=== PATIENT | male | born 1970 | race Caucasian/White ===

== ENCOUNTER 2025-06-15 17:36 | Inpatient (IN) | payer OTHER ==
[2025-06-15] VITALS (16 sets, daily range): BP systolic 110–164; BP diastolic 76–112; PULSE 73–90; RESP 10–27; TEMP 36.5848–36.8; O2SAT 97–100
[~2025-06-15] VITALS: Ht 165.1 cm; Wt 77.2 kg
[2025-06-15] MEDS: MORPHINE SULFATE 4 MG/ML INJ (FOR IV/IM USE) IV ONE (18:25)
[2025-06-15] MEDS: FAMOTIDINE 20MG/2ML VIAL IV ONE (18:26)
[2025-06-15] MEDS: HEPARIN 5000 UNITS/ML VIAL IV ONE (18:28)
[2025-06-15] MEDS: NITROGLYCERIN 0.4MG TABLET SL SL PRN (18:41)
[2025-06-15] MEDS ORDERED: IODIXANOL 320 MG/ML 150ML BOTTLE IV ONE (18:51)
[2025-06-15] MEDS ORDERED: HEPARIN 1000 UNITS/ML 10ML ONE ×2 (18:51→19:04)
[2025-06-15] MEDS ORDERED: LIDOCAINE HCL 1% 20ML VIAL ONE (18:51)
[2025-06-15 18:59] LABS: BASOPHILS % 0.2 % (0.0-2.0); EOSINOPHILS % 0.1 % (0.0-5.0); HEMATOCRIT. 41.9 % (42.0-52.0); HEMOGLOBIN. 14.2 g/dL (14.0-18.0); LYMPHOCYTES % 10.3 % (20.0-50.0); MEAN PLATELET VOLUME 10.2 fl (7.4-10.4); MONOCYTES % 4.2 % (2.0-8.0); NEUTROPHILS % 85.2 % (40.0-76.0); PLATELET 197 x1000/uL (130-400); RED BLOOD CELL COUNT 4.54 mill/uL (4.7-6.1); RED CELL DISTRIBUTION WIDTH 13.4 % (11.6-14.6)
[2025-06-15] MEDS ORDERED: FENTANYL CITRATE/PF 50MCG/ML 2ML VIAL ONE (19:04)
[2025-06-15] MEDS ORDERED: DIPHENHYDRAMINE 50MG/ML VIAL ONE (19:04)
[2025-06-15] MEDS ORDERED: MIDAZOLAM HCL 2 MG/2 ML VIAL ONE (19:04)
[2025-06-15] MEDS ORDERED: VERAPAMIL HCL 2.5 MG/1 ML 2ML VIAL IV ONE (19:04)
[2025-06-15 19:09] LABS: INR 1.1
[2025-06-15 19:15] LABS: CREATININE 0.9 mg/dL (0.6-1.3); UREA NITROGEN BLOOD 10 mg/dL (9-23)
[2025-06-15 19:24] LABS: TROPONIN I HIGH SENSITIVITY 957 ng/L (3.0-53)
[2025-06-15] MEDS ORDERED: HYDRALAZINE 20MG/ML VIAL ONE (20:20)
[2025-06-15] MEDS ORDERED: ACETAMINOPHEN 325MG TABLET PO PRN ×3 (20:45→22:45)
[2025-06-15] MEDS ORDERED: ATROPINE SULFATE 1MG/10ML SYR IV PRN (20:45)
[2025-06-15] MEDS ORDERED: NITROGLYCERIN 50MG PREMIX 250 ML IV PRN (21:00)
[2025-06-15] MEDS: FUROSEMIDE 40MG/4ML VIAL IVP SCH (21:48)
[2025-06-15] MEDS: METOPROLOL TARTRATE 25MG TABLET PO SCH (21:48)
[2025-06-15] MEDS: CHLORHEXIDINE GLUCONATE 4% EXTERNAL USE TOP SCH (21:54)
[2025-06-15] MEDS: HYDRALAZINE HCL 25MG TABLET PO SCH (22:00)
[2025-06-15] MEDS ORDERED: ATOR10TA MT (22:19)
[2025-06-15] MEDS ORDERED: LOSA25TA26 MT (22:19)
[2025-06-15] MEDS ORDERED: PANT40SU PO (22:19)
[2025-06-15] MEDS ORDERED: IPRATROPIUM/ALBUTEROL 0.5-3(2.5)MG/3ML NEB HHN PRN (22:45)
[2025-06-15] MEDS ORDERED: CLONIDINE 0.1MG TABLET PO PRN (22:45)
[2025-06-15] MEDS ORDERED: DOCUSATE SODIUM 100MG CAPSULE PO PRN (22:45)
[2025-06-15] MEDS ORDERED: ONDANSETRON HCL 4MG/2ML INJ IV PRN (22:45)
[2025-06-15] MEDS ORDERED: NITROGLYCERIN 0.4MG TABLET SL SL PRN (23:30)
[2025-06-15] MEDS ORDERED: BISACODYL 10MG SUPP PR PRN (23:30)
[2025-06-15] MEDS ORDERED: ALPRAZOLAM 0.25 MG TABLET PO PRN (23:30)
[2025-06-16] VITALS (79 sets, daily range): BP systolic 97–159; BP diastolic 34–108; PULSE 57–122; RESP 0–26; TEMP 36.3–37.4; O2SAT 94–100
[2025-06-16] MEDS: ALLOPURINOL 300 MG TABLET PO SCH (00:01)
[2025-06-16] MEDS: ASCORBIC ACID 500 MG TABLET PO SCH (00:01)
[2025-06-16] MEDS: DOCUSATE SODIUM 100MG CAPSULE PO SCH ×2 (00:01→20:35)
[2025-06-16] MEDS: EPOETIN ALFA-EPBX 10,000 UNITS/ML VIAL SUBCUT NR (00:30)
[2025-06-16] MEDS: HEPARIN 25,000 UNITS PREMIX 250 ML IV PRN (01:41)
[2025-06-16 03:59] LABS: BASOPHILS % 0.4 % (0.0-2.0); EOSINOPHILS % 0.1 % (0.0-5.0); HEMATOCRIT. 42.0 % (42.0-52.0); HEMOGLOBIN. 14.2 g/dL (14.0-18.0); LYMPHOCYTES % 15.9 % (20.0-50.0); MEAN PLATELET VOLUME 9.5 fl (7.4-10.4); MONOCYTES % 10.8 % (2.0-8.0); NEUTROPHILS % 72.8 % (40.0-76.0); PLATELET 178 x1000/uL (130-400); RED BLOOD CELL COUNT 4.59 mill/uL (4.7-6.1); RED CELL DISTRIBUTION WIDTH 13.7 % (11.6-14.6)
[2025-06-16 04:08] LABS: CLARITY URINE CLEAR (CLEAR); COLOR URINE YELLOW (YELLOW); GLUCOSE URINE NEGATIVE (NEGATIVE); KETONES URINE NEGATIVE (NEGATIVE); LEUKOCYTE ESTERASE URINE NEGATIVE (NEGATIVE); NITRITE URINE NEGATIVE (NEGATIVE); OCCULT BLOOD URINE 1+ (NEGATIVE); PH URINE 5.5 (4.5-8.0); PROTEIN URINE TRACE (NEGATIVE); SPECIFIC GRAVITY URINE 1.034 (1.005-1.030); UROBILINOGEN URINE 0.2 E.U./dL (0.2-1.0)
[2025-06-16 04:09] LABS: INR 1.1
[2025-06-16 04:21] LABS: CREATININE 0.9 mg/dL (0.6-1.3); TRIGLYCERIDE 55 mg/dL (0-150); UREA NITROGEN BLOOD 12 mg/dL (9-23)
[2025-06-16 04:22] LABS: LDL CHOLESTEROL 118 mg/dL (5-100); PHOSPHORUS 3.7 mg/dL (2.5-4.9)
[2025-06-16 04:25] LABS: T4 FREE 1.17 ng/dL (0.89-1.76)
[2025-06-16 04:34] LABS: *AMPHETAMINES SCREEN URINE NEGATIVE (NEGATIVE); *BARBITURATES SCREEN URINE NEGATIVE (NEGATIVE); *BENZODIAZEPINES SCREEN URINE PRESUMPTIVE POSITIVE (NEGATIVE); *COCAINE SCREEN URINE NEGATIVE (NEGATIVE); METHADONE URINE SCREEN NEGATIVE (NEGATIVE); OPIATES URINE SCREEN PRESUMPTIVE POSITIVE (NEGATIVE); PHENCYCLIDINE URINE SCREEN NEGATIVE (NEGATIVE)
[2025-06-16 04:35] LABS: CANNABINOID URINE SCREEN NEGATIVE (NEGATIVE); ECSTASY MDMA SCREEN URINE NEGATIVE (NEGATIVE)
[2025-06-16] MEDS ORDERED: CHLORHEXIDINE GLUCONATE 4% EXTERNAL USE TOP SCH ×2 (05:00)
[2025-06-16] MEDS ORDERED: EPINEPHRINE 5 MG in DEXT 5% WATER 250 ML IV PRN (05:00)
[2025-06-16] MEDS ORDERED: NICARDIPINE 40MG/200ML PREMIX 200 ML IV PRN (05:00)
[2025-06-16] MEDS ORDERED: NOREPINEPHRINE 8 MG in DEXT 5% WATER 250 ML IV PRN (05:00)
[2025-06-16] MEDS ORDERED: AMINOCAPROIC ACID 5,000 MG in SODIUM CHLORIDE 0.9% 250 ML IV PRN (05:00)
[2025-06-16] MEDS ORDERED: DOPAMINE 400MG/250ML PREMIX 250 ML IV PRN ×2 (05:00→13:30)
[2025-06-16] MEDS ORDERED: PAPAVERINE HCL 180MG in SODIUM CHLORIDE 0.9% 24ML IV PRN (05:00)
[2025-06-16] MEDS ORDERED: DOBUTAMINE 250 MG/250 ML PREMIX IV PRN (05:00)
[2025-06-16] MEDS ORDERED: LR with VERAPAMIL, NTG, HEPARIN, SODIUM BICARBONATE (Soln) IV PRN ×2 (05:00→06:00)
[2025-06-16] MEDS: CHLORHEXIDINE GLUCONATE 4% EXTERNAL USE TOP SCH (05:44)
[2025-06-16] MEDS ORDERED: THROMBIN (BOVINE) 5000 UNITS/VIAL TOP ONE ×2 (05:55→05:56)
[2025-06-16] MEDS ORDERED: POLYMYXIN B SULFATE 500000 UNITS/VIAL ONE (05:55)
[2025-06-16] MEDS ORDERED: ACETAMINOPHEN 1000MG/100ML 100 ML IV ONE (05:56)
[2025-06-16] MEDS ORDERED: SKIN ADHESIVE 0.7 GM EA TOP ONE (05:56)
[2025-06-16] MEDS ORDERED: NITROGLYCERIN 50MG PREMIX 250 ML IV ONE (06:51)
[2025-06-16] MEDS ORDERED: HEPARIN 1000 UNITS/ML 10ML ONE ×3 (06:51→12:47)
[2025-06-16] MEDS ORDERED: SEVOFLURANE 250 ML LIQUID INH ONE (06:51)
[2025-06-16] MEDS ORDERED: DEXMEDETOMIDINE 250 ML IV ONE (06:56)
[2025-06-16] MEDS ORDERED: PROPOFOL 10MG/ML 100ML 100 ML IV ONE (06:57)
[2025-06-16] MEDS ORDERED: FENTANYL CITRATE/PF 50MCG/ML 5ML VIAL ONE (07:11)
[2025-06-16] MEDS ORDERED: ROCURONIUM BROMIDE 10MG/ML VIAL 5ML IV ONE ×3 (07:11→10:55)
[2025-06-16] MEDS ORDERED: ETOMIDATE 2MG/ML 10ML VIAL IV ONE (07:11)
[2025-06-16] MEDS ORDERED: MIDAZOLAM HCL 2 MG/2 ML VIAL ONE (07:12)
[2025-06-16 07:14] LABS: SQUAMOUS EPITHELIAL CELL URINE NONE SEEN /lpf (RARE/1+)
[2025-06-16 07:16] LABS: BACTERIA URINE NONE SEEN; WBC URINE 0-2 /hpf (0-2)
[2025-06-16] MEDS ORDERED: AMINOCAPROIC ACID 250 MG/ML 20ML VIAL ONE (07:19)
[2025-06-16] MEDS ORDERED: LIDOCAINE HCL/PF 2% 20MG/ML 5 ML/VIAL ONE (07:19)
[2025-06-16] MEDS ORDERED: ONDANSETRON HCL 4MG/2ML INJ ONE ×2 (07:25→10:23)
[2025-06-16] MEDS ORDERED: METOCLOPRAMIDE HCL 10MG/2ML VIAL ONE (07:25)
[2025-06-16] MEDS ORDERED: MAGNESIUM SULFATE 5GM/10ML VIAL IV ONE (07:26)
[2025-06-16] MEDS ORDERED: ALBUMIN HUMAN 12.5G/250ML (5%) IV ONE (08:07)
[2025-06-16] MEDS ORDERED: CALCIUM CHLORIDE 1GM/10ML SYR IV ONE ×2 (08:11→10:21)
[2025-06-16] MEDS ORDERED: AMIODARONE HCL 50MG/ML 3ML VIAL IV ONE (10:58)
[2025-06-16] MEDS ORDERED: PROTAMINE SULFATE 10MG/ML VIAL 25ML IV ONE (11:25)
[2025-06-16] MEDS ORDERED: CEFAZOLIN SODIUM 1000MG/VIAL ONE (11:25)
[2025-06-16] MEDS ORDERED: SODIUM BICARBONATE 8.4% 50MEQ/50ML SYR IV ONE (11:41)
[2025-06-16] MEDS ORDERED: CALCIUM CHLORIDE 5,000 MG in DEXT 5% WATER 500 ML IV PRN (12:00)
[2025-06-16] MEDS ORDERED: KCL 20MEQ/100ML PREMIX 200 ML IV ONE (12:02)
[2025-06-16] MEDS ORDERED: ALBUMIN HUMAN 25GM/100ML (25%) IV PRN (12:15)
[2025-06-16] MEDS ORDERED: MAGNESIUM 1 G PREMIX 100 ML IV PRN (12:15)
[2025-06-16] MEDS ORDERED: ALBUMIN HUMAN 12.5G/250ML (5%) IV PRN (12:15)
[2025-06-16] MEDS ORDERED: CLOPIDOGREL 75MG TABLET PO SCH (12:15)
[2025-06-16] MEDS ORDERED: SODIUM CHLORIDE 0.9% 500 ML IV PRN (12:15)
[2025-06-16] MEDS ORDERED: ACETAMINOPHEN 650MG SUPP PR PRN (12:15)
[2025-06-16] MEDS ORDERED: ACETAMINOPHEN 325MG TABLET PO PRN (12:15)
[2025-06-16] MEDS ORDERED: OXYCODONE HCL/ACETAMINOPHEN 5/325MG TABLET PO PRN (12:15)
[2025-06-16] MEDS ORDERED: ASPIRIN 81MG EC TABLET PO SCH (12:15)
[2025-06-16 12:27] LABS: BASOPHILS % 0.4 % (0.0-2.0); EOSINOPHILS % 0.4 % (0.0-5.0); HEMATOCRIT. 43.7 % (42.0-52.0); HEMOGLOBIN. 14.9 g/dL (14.0-18.0); LYMPHOCYTES % 11.5 % (20.0-50.0); MEAN PLATELET VOLUME 9.9 fl (7.4-10.4); MONOCYTES % 6.3 % (2.0-8.0); NEUTROPHILS % 81.4 % (40.0-76.0); PLATELET 158 x1000/uL (130-400); RED BLOOD CELL COUNT 4.80 mill/uL (4.7-6.1); RED CELL DISTRIBUTION WIDTH 13.5 % (11.6-14.6)
[2025-06-16 12:43] LABS: INR 1.1
[2025-06-16 12:46] LABS: CREATININE 1.2 mg/dL (0.6-1.3)
[2025-06-16 12:47] LABS: UREA NITROGEN BLOOD 14 mg/dL (9-23)
[2025-06-16 12:48] LABS: ASPARTATE AMINOTRANSFERASE 293 IU/L (<34)
[2025-06-16 12:49] LABS: BILIRUBIN TOTAL 1.2 mg/dL (0.1-1.0); PHOSPHORUS 4.2 mg/dL (2.5-4.9); PROTEIN TOTAL 6.7 g/dL (6.0-8.3)
[2025-06-16] MEDS: EPINEPHRINE 5 MG in DEXT 5% WATER 245 ML IV PRN (13:00)
[2025-06-16] MEDS: DOPAMINE 400MG/250ML PREMIX 250 ML IV PRN (13:00)
[2025-06-16 13:15] LABS: BG BASE EXCESS 0.0 mmol/L (-2.0-3.0); BG CARBOXYHEMOGLOBIN 0.5 % (0.5-1.5); BG DEOXYHEMOGLOBIN 2.8 % (0.0-5.0); BG FLOW(L/min) 5.00 L/min; BG FRACTION INSPIRED OXYGEN 100; BG HCO3 ACT 26.2 mmol/L (21.0-28.0); BG METHEMOGLOBIN 0.1 % (0.5-1.5); BG OXYGEN SATURATION 97.2 % (94.0-98.0); BG OXYHEMOGLOBIN 96.6 % (94.0-98.0); BG PCO2 47.8 mmHg (35.0-48.0); BG PH 7.356 (7.350-7.450); BG PO2 98.1 mmHg (83.0-108.0); BG SAMPLE SITE ALINE; BG TOTAL HEMOGLOBIN 16.0 g/dL (13.5-17.5); BG VENT MODE MASK - NRB
[2025-06-16] MEDS ORDERED: NALOXONE HCL 0.4MG/ML VIAL IV PRN (13:15)
[2025-06-16] MEDS: ALBUMIN HUMAN 12.5G/250ML (5%) IV NR (13:16)
[2025-06-16] MEDS: CALCIUM CHLORIDE 3,000 MG in DEXT 5% WATER 250 ML IV PRN (13:20)
[2025-06-16] MEDS: DEXT 5%/0.45% NACL 1000ML 1,000 ML IV SCH (13:21)
[2025-06-16] MEDS: INSULIN REGULAR 100U/100ML PMX 100 ML IV PRN (13:21)
[2025-06-16] MEDS ORDERED: KCL 10MEQ/50ML PREMIX 150 ML IV PRN (13:30)
[2025-06-16] MEDS ORDERED: EPINEPHRINE 5 MG in SODIUM CHLORIDE 0.9% 245 ML IV PRN (13:30)
[2025-06-16] MEDS ORDERED: KCL 10MEQ/50ML PREMIX 200 ML IV PRN (13:30)
[2025-06-16] MEDS: CEFAZOLIN 1000MG PREMIX 50 ML IV SCH (14:00)
[2025-06-16] MEDS: KCL 20MEQ/100ML PREMIX 100 ML IV SCH ×2 (14:54→18:15)
[2025-06-16] MEDS: KETOROLAC 30MG/ML VIAL IV PRN (14:55)
[2025-06-16] MEDS: ONDANSETRON HCL 4MG/2ML INJ IV PRN (14:55)
[2025-06-16] MEDS: MAGNESIUM 2 G PREMIX 50 ML IV SCH (16:34)
[2025-06-16] MEDS: PANTOPRAZOLE SODIUM 40 MG/VIAL IV SCH (16:34)
[2025-06-16] MEDS: MAGNESIUM HYDROXIDE 400MG/5ML 30ML UDC PO SCH (16:34)
[2025-06-16] MEDS: IPRATROPIUM/ALBUTEROL 0.5-3(2.5)MG/3ML NEB HHN SCH (17:09)
[2025-06-16 17:36] LABS: HEMATOCRIT. 41.3 % (42.0-52.0); HEMOGLOBIN. 14.2 g/dL (14.0-18.0); MEAN PLATELET VOLUME 9.7 fl (7.4-10.4); PLATELET 166 x1000/uL (130-400); RED BLOOD CELL COUNT 4.59 mill/uL (4.7-6.1); RED CELL DISTRIBUTION WIDTH 13.5 % (11.6-14.6)
[2025-06-16] MEDS: METOCLOPRAMIDE HCL 10MG/2ML VIAL IV SCH (17:40)
[2025-06-16 17:47] LABS: CREATININE 1.0 mg/dL (0.6-1.3); UREA NITROGEN BLOOD 14 mg/dL (9-23)
[2025-06-16 17:50] LABS: PHOSPHORUS 3.1 mg/dL (2.5-4.9)
[2025-06-16] MEDS: MAGNESIUM 2 G PREMIX 50 ML IV PRN (17:59)
[2025-06-16 18:02] LABS: BAND% 1.0 % (1.0-6.0); LYMPHOCYTES % MANUAL 13.0 % (20.0-50.0); MONOCYTES % MANUAL 11.0 % (2.0-8.0); NEUTROPHILS % MANUAL 75.0 % (45.0-75.0); PLATELET ESTIMATE NORMAL
[2025-06-16] MEDS ORDERED: INSULIN REGULAR 100U/100ML PMX 100 ML IV PRN (20:30)
[2025-06-16] MEDS: ASPIRIN 81MG EC TABLET PO SCH (20:35)
[2025-06-16] MEDS: CLOPIDOGREL 75MG TABLET PO SCH (20:36)
[2025-06-16] MEDS: BACITRACIN 14GM TUBE TOP SCH (20:36)
[2025-06-16] MEDS: INSULIN REGULAR 100U/100ML PMX 100 ML IV SCH (21:43)
[2025-06-16] MEDS: ACETAMINOPHEN 325MG TABLET PO PRN (23:48)
[2025-06-17] VITALS (101 sets, daily range): BP systolic 95–124; BP diastolic 57–99; PULSE 80–126; RESP 0–37; TEMP 36.6–37.4; O2SAT 91–99
[2025-06-17 01:05] LABS: BASOPHILS % 0.3 % (0.0-2.0); EOSINOPHILS % 0.0 % (0.0-5.0); HEMATOCRIT. 43.1 % (42.0-52.0); HEMOGLOBIN. 14.5 g/dL (14.0-18.0); LYMPHOCYTES % 8.9 % (20.0-50.0); MEAN PLATELET VOLUME 9.6 fl (7.4-10.4); MONOCYTES % 14.5 % (2.0-8.0); NEUTROPHILS % 76.3 % (40.0-76.0); PLATELET 152 x1000/uL (130-400); RED BLOOD CELL COUNT 4.68 mill/uL (4.7-6.1); RED CELL DISTRIBUTION WIDTH 13.7 % (11.6-14.6)
[2025-06-17 01:29] LABS: CREATININE 1.1 mg/dL (0.6-1.3); UREA NITROGEN BLOOD 13 mg/dL (9-23)
[2025-06-17 01:31] LABS: PHOSPHORUS 4.3 mg/dL (2.5-4.9)
[2025-06-17 01:32] LABS: ASPARTATE AMINOTRANSFERASE 250 IU/L (<34); BILIRUBIN DIRECT 0.3 mg/dL (<=3.0); BILIRUBIN TOTAL 1.0 mg/dL (0.1-1.0); PROTEIN TOTAL 6.3 g/dL (6.0-8.3)
[2025-06-17 01:49] LABS: TROPONIN I HIGH SENSITIVITY 48049 ng/L (3.0-53)
[2025-06-17] MEDS ORDERED: AMIODARONE 360MG/200ML 200 ML IV SCH (02:00)
[2025-06-17] MEDS: AMIODARONE 150MG/100ML D5W 100 ML IV NR (02:36)
[2025-06-17] MEDS: MAGNESIUM 4 G PREMIX 100 ML IV NR (02:36)
[2025-06-17] MEDS: AMIODARONE HCL 900 MG in DEXT 5% WATER 500 ML IV SCH (02:47)
[2025-06-17] MEDS: OXYCODONE HCL/ACETAMINOPHEN 5/325MG TABLET PO PRN (06:27)
[2025-06-17 07:37] LABS: BASOPHILS % 0.2 % (0.0-2.0); EOSINOPHILS % 0.1 % (0.0-5.0); HEMATOCRIT. 44.2 % (42.0-52.0); HEMOGLOBIN. 14.7 g/dL (14.0-18.0); LYMPHOCYTES % 10.6 % (20.0-50.0); MEAN PLATELET VOLUME 10.3 fl (7.4-10.4); MONOCYTES % 14.7 % (2.0-8.0); NEUTROPHILS % 74.4 % (40.0-76.0); PLATELET 157 x1000/uL (130-400); RED BLOOD CELL COUNT 4.73 mill/uL (4.7-6.1); RED CELL DISTRIBUTION WIDTH 13.8 % (11.6-14.6)
[2025-06-17 07:38] LABS: CREATININE 1.1 mg/dL (0.6-1.3); UREA NITROGEN BLOOD 10 mg/dL (9-23)
[2025-06-17 07:41] LABS: PHOSPHORUS 5.0 mg/dL (2.5-4.9)
[2025-06-17] MEDS: AMIODARONE 200MG TABLET PO SCH (08:54)
[2025-06-17] MEDS: TAMSULOSIN HCL 0.4MG SR CAPSULE PO SCH (10:33)
[2025-06-17] MEDS ORDERED: DEXTROSE 50% WATER 50ML SYRINGE IV PRN (11:30)
[2025-06-17] MEDS: BLOOD SUGAR DIAGNOSTIC STRIP TEST SCH (12:07)
[2025-06-17] MEDS: INSULIN LISPRO 100 UNITS/ML SUBCUT SCH (12:07)
[2025-06-17] MEDS: MIDODRINE HCL 5MG TABLET PO SCH (14:52)
[2025-06-17] MEDS: ALBUMIN HUMAN 25GM/100ML (25%) IV SCH (14:53)
[2025-06-18] VITALS (101 sets, daily range): BP systolic 94–136; BP diastolic 62–100; PULSE 97–119; RESP 9–31; TEMP 36.9–37.4; O2SAT 90–100
[2025-06-18 06:36] LABS: BASOPHILS % 0.2 % (0.0-2.0); EOSINOPHILS % 0.4 % (0.0-5.0); HEMATOCRIT. 37.2 % (42.0-52.0); HEMOGLOBIN. 12.6 g/dL (14.0-18.0); LYMPHOCYTES % 10.7 % (20.0-50.0); MEAN PLATELET VOLUME 9.7 fl (7.4-10.4); MONOCYTES % 14.4 % (2.0-8.0); NEUTROPHILS % 74.3 % (40.0-76.0); PLATELET 117 x1000/uL (130-400); RED BLOOD CELL COUNT 4.03 mill/uL (4.7-6.1); RED CELL DISTRIBUTION WIDTH 14.3 % (11.6-14.6)
[2025-06-18 06:56] LABS: CREATININE 0.9 mg/dL (0.6-1.3); UREA NITROGEN BLOOD 14 mg/dL (9-23)
[2025-06-18 08:15] LABS: PHOSPHORUS 3.0 mg/dL (2.5-4.9)
[2025-06-18] MEDS: FUROSEMIDE 40MG/4ML VIAL IVP SCH (08:20)
[2025-06-18] MEDS: MAGNESIUM 2 G PREMIX 50 ML IV ONE (08:20)
[2025-06-18] MEDS ORDERED: ONDANSETRON HCL 4MG/2ML INJ ONE (12:04)
[2025-06-18] MEDS ORDERED: ALBUMIN HUMAN 12.5G/250ML (5%) IV ONE (12:04)
[2025-06-18] MEDS ORDERED: KETOROLAC 30MG/ML VIAL ONE (12:04)
[2025-06-18] MEDS: MAGNESIUM/ALUMINUM HYDROXIDE/SIMETHICONE 30ML UDC PO PRN (14:16)
[2025-06-18] MEDS: ACETAMINOPHEN 325MG TABLET PO PRN (18:28)
[2025-06-18 20:53] LABS: BASOPHILS % 0.2 % (0.0-2.0); EOSINOPHILS % 0.4 % (0.0-5.0); HEMATOCRIT. 37.7 % (42.0-52.0); HEMOGLOBIN. 12.6 g/dL (14.0-18.0); LYMPHOCYTES % 14.9 % (20.0-50.0); MEAN PLATELET VOLUME 10.0 fl (7.4-10.4); MONOCYTES % 13.2 % (2.0-8.0); NEUTROPHILS % 71.3 % (40.0-76.0); PLATELET 124 x1000/uL (130-400); RED BLOOD CELL COUNT 4.06 mill/uL (4.7-6.1); RED CELL DISTRIBUTION WIDTH 14.0 % (11.6-14.6)
[2025-06-18] MEDS: GUAIFENESIN 200MG/10ML SUGAR FREE UDC PO PRN (20:54)
[2025-06-18 21:05] LABS: CREATININE 0.9 mg/dL (0.6-1.3); UREA NITROGEN BLOOD 13 mg/dL (9-23)
[2025-06-18 21:08] LABS: PHOSPHORUS 1.4 mg/dL (2.5-4.9)
[2025-06-18] MEDS: SODIUM PHOSPHATE 30 MMOL in DEXT 5% WATER 490 ML IV SCH (23:12)
[2025-06-19] VITALS (89 sets, daily range): BP systolic 92–145; BP diastolic 70–108; PULSE 87–116; RESP 10–29; TEMP 36.2–37.2; O2SAT 89–98
[2025-06-19 06:08] LABS: BASOPHILS % 0.4 % (0.0-2.0); EOSINOPHILS % 0.8 % (0.0-5.0); HEMATOCRIT. 38.2 % (42.0-52.0); HEMOGLOBIN. 12.9 g/dL (14.0-18.0); LYMPHOCYTES % 17.5 % (20.0-50.0); MEAN PLATELET VOLUME 9.6 fl (7.4-10.4); MONOCYTES % 13.3 % (2.0-8.0); NEUTROPHILS % 68.0 % (40.0-76.0); PLATELET 129 x1000/uL (130-400); RED BLOOD CELL COUNT 4.13 mill/uL (4.7-6.1); RED CELL DISTRIBUTION WIDTH 13.4 % (11.6-14.6)
[2025-06-19 06:20] LABS: CREATININE 0.8 mg/dL (0.6-1.3)
[2025-06-19 06:23] LABS: UREA NITROGEN BLOOD 11 mg/dL (9-23)
[2025-06-19 06:25] LABS: PHOSPHORUS 3.2 mg/dL (2.5-4.9)
[2025-06-19] MEDS: KCL 10MEQ/50ML PREMIX 100 ML IV PRN (07:27)
[2025-06-19] MEDS: MIDODRINE HCL 5MG TABLET PO SCH (08:07)
[2025-06-19] MEDS: ATORVASTATIN CALCIUM 40MG TABLET PO SCH (20:28)
[2025-06-19] MEDS: MELATONIN 3MG TABLET PO SCH (22:27)
[2025-06-20] VITALS (51 sets, daily range): BP systolic 94–142; BP diastolic 71–127; PULSE 81–110; RESP 13–24; TEMP 36.3–36.9; O2SAT 91–100
[2025-06-20 06:26] LABS: PLATELET 175 x1000/uL (130-400); RED BLOOD CELL COUNT 3.76 mill/uL (4.7-6.1); RED CELL DISTRIBUTION WIDTH 13.8 % (11.6-14.6)
[2025-06-20 06:43] LABS: CREATININE 0.9 mg/dL (0.6-1.3); UREA NITROGEN BLOOD 16 mg/dL (9-23)
[2025-06-20 06:45] LABS: PHOSPHORUS 3.2 mg/dL (2.5-4.9)
[2025-06-20] MEDS: MAGNESIUM SULFATE 3 GM in DEXT 5% WATER 100 ML IV PRN (09:35)
[2025-06-20] MEDS ORDERED: MELATONIN 3MG TABLET PO SCH (21:00)
[2025-06-21] VITALS: BP 99/76; PULSE 81; RESP 14; TEMP 37; O2SAT 97
[2025-06-21 04:00] VITALS: BP 116/78; PULSE 85; RESP 13; TEMP 36.2; O2SAT 95
[2025-06-21 08:00] VITALS: BP 115/84; PULSE 82; RESP 13; TEMP 36.8; O2SAT 95
[2025-06-21 12:00] VITALS: BP 134/104; PULSE 85; RESP 19; TEMP 36.7; O2SAT 98
[2025-06-21 15:33] VITALS: BP 110/76; PULSE 89; RESP 19; TEMP 98.5
[2025-06-21] MEDS ORDERED: MIDO5TAB4 PO (15:34)
[2025-06-21] MEDS ORDERED: TAMS-54 PO ×3 (15:34→22:47)
[2025-06-21] MEDS ORDERED: ASPI-1406 PO (15:34)
[2025-06-21] MEDS ORDERED: CLOP-31 PO (15:34)
[2025-06-21] MEDS ORDERED: LIP40 PO (15:34)
[2025-06-21] MEDS ORDERED: AMI2 PO (15:34)
[2025-06-21] MEDS ORDERED: DOCU-422 PO ×2 (15:34→22:47)
[2025-06-21 16:00] VITALS: BP 110/76; PULSE 89; RESP 19; TEMP 36.9; O2SAT 96
[2025-06-21] MEDS ORDERED: ASPI-1497 PO ×2 (18:12→22:47)
[2025-06-21] MEDS ORDERED: MIDO10TA3 MT ×2 (18:12→22:47)
[2025-06-21] MEDS ORDERED: AMI2 MT ×2 (18:12→22:47)
[2025-06-21] MEDS ORDERED: CLOP75TA33 PO ×2 (18:12→22:47)
[2025-06-21] MEDS ORDERED: DOCU100T MT (18:12)
[2025-06-21] MEDS ORDERED: ATOR-2 MT ×2 (18:12→22:47)
[2025-06-22] MEDS ORDERED: FAMOTIDINE 20MG TABLET PO SCH (09:00)
== END 2025-06-21 16:33 | disposition home health service (06) | DRG 233 ==
LOC: ER 17:36 → CVICU 20:34 → 3WST 06-20 17:55
PROVIDERS: ADMIT Hospitalist; ATTEND Hospitalist
PROC: 4A023N7 Measurement of Cardiac Sampling and Pressure, Left Heart, Percutaneous Approach (ICD-10-PCS; 2025-06-15)
PROC: 5A02210 Assistance with Cardiac Output using Balloon Pump, Continuous (ICD-10-PCS; 2025-06-15)
PROC: B2111ZZ Fluoroscopy of Multiple Coronary Arteries using Low Osmolar Contrast (ICD-10-PCS; 2025-06-15)
PROC: B41F1ZZ Fluoroscopy of Right Lower Extremity Arteries using Low Osmolar Contrast (ICD-10-PCS; 2025-06-15)
PROC: B2151ZZ Fluoroscopy of Left Heart using Low Osmolar Contrast (ICD-10-PCS; 2025-06-15)
PROC: 021309W Bypass Coronary Artery, Four or More Arteries from Aorta with Autologous Venous Tissue, Open Approach (ICD-10-PCS; principal; 2025-06-16)
PROC: 02100Z9 Bypass Coronary Artery, One Artery from Left Internal Mammary, Open Approach (ICD-10-PCS; 2025-06-16)
PROC: 06BQ4ZZ Excision of Left Saphenous Vein, Percutaneous Endoscopic Approach (ICD-10-PCS; 2025-06-16)
PROC: 5A1221Z Performance of Cardiac Output, Continuous (ICD-10-PCS; 2025-06-16)
DX: T82.855A Stenosis of coronary artery stent, initial encounter (principal); I21.02 ST elevation (STEMI) myocardial infarction involving left anterior descending coronary artery; I50.21 Acute systolic (congestive) heart failure; I47.20 Ventricular tachycardia, unspecified; I42.9 Cardiomyopathy, unspecified; I25.10 Atherosclerotic heart disease of native coronary artery without angina pectoris; T82.867A Thrombosis due to cardiac prosthetic devices, implants and grafts, initial encounter; I16.0 Hypertensive urgency; D72.829 Elevated white blood cell count, unspecified; I11.0 Hypertensive heart disease with heart failure; E78.00 Pure hypercholesterolemia, unspecified; E11.65 Type 2 diabetes mellitus with hyperglycemia; Y83.8 Other surgical procedures as the cause of abnormal reaction of the patient, or of later complication, without mention of misadventure at the time of the procedure; Y83.1 Surgical operation with implant of artificial internal device as the cause of abnormal reaction of the patient, or of later complication, without mention of misadventure at the time of the procedure; E87.6 Hypokalemia; E83.42 Hypomagnesemia; I25.2 Old myocardial infarction; Z79.01 Long term (current) use of anticoagulants
CPT/HCPCS: 33967; 36415; 36600; 71045; 80048; 80053; 80061; 80076; 80305; 81003; 82375; 82805; 82962; 83036; 83735; 84100; 84439; 84443; 84484; 85025; 85027; 85347; 85384; 86850; 86900; 86920; 87426; 93005; 93308; 93458; 94070; 94640; 94664; 97116; 97162; 97166; 97530; 97535; 99291; A4606; C1725; C1729; C1751; C1758; C1769; C1887; C1893; J0282; J0360; J0690; J0885; J1200; J1265; J1308; J1644; J1815; J1885; J1938; J2003; J2250; J2270; J2405; J2470; J2704; J2720; J2765; J3010; J3475; J3480; J3490; J7060; L3908; P9041; P9047; Q9967; A4217; C1713; J0131